=== PATIENT | female | born 1985 | race Caucasian/White ===

== ENCOUNTER 2023-12-31 06:21 | Emergency (ER) | payer MEDICAID ==
[~2023-12-31] VITALS: Ht 170.2 cm; Wt 130.0 kg
[2023-12-31 06:43] VITALS: O2SAT 98
[2023-12-31 07:24] LABS: BASOPHILS % 0.4 % (0.0-2.0); DIFFERENTIAL COMMENT 0; HEMOGLOBIN. 11.5 g/dL (12.0-16.0); LYMPHOCYTES % 24.1 % (20.0-50.0); MEAN CORPUSCULAR HEMOGLOBIN 25.5 pg (28.0-32.0); MEAN CORPUSCULAR HGB CONC 32.9 g/dL (31.0-37.0); MEAN CORPUSCULAR VOLUME 77.7 fL (81.0-99.0); MEAN PLATELET VOLUME 6.8 fl (7.4-10.4); MONOCYTES % 4.6 % (2.0-8.0); NEUTROPHILS % 67.9 % (40.0-76.0); PLATELET 406 x1000/uL (130-400); WHITE BLOOD COUNT 8.9 x1000/uL (4.5-11.0)
[2023-12-31 07:31] LABS: CHLORIDE 106 mEq/L (98-107); POTASSIUM 3.7 mEq/L (3.5-5.1); SODIUM 138 mEq/L (136-145)
[2023-12-31 07:32] LABS: CARBON DIOXIDE 26 mEq/L (21-32)
[2023-12-31 07:33] LABS: CALCIUM 9.4 mg/dL (8.7-10.4)
[2023-12-31 07:37] LABS: CREATININE 0.7 mg/dL (0.6-1.0); GLUCOSE 100 mg/dL (70-105); UREA NITROGEN BLOOD 11 mg/dL (9-23)
[2023-12-31 07:52] LABS: B-HCG QUANTITATIVE 2 mIU/mL (<3)
[2023-12-31 09:21] LABS: HCG SCREEN NEGATIVE
[2023-12-31] MEDS ORDERED: IBUP-2028 MT (10:22)
[2023-12-31 10:39] VITALS: BP 126/78; PULSE 76; RESP 16; TEMP 36.94740; O2SAT 99
[2023-12-31] MEDS ORDERED: METR-167 MT (16:10)
[2023-12-31] MEDS ORDERED: CIPR-263 MT (16:10)
== END 2023-12-31 10:41 | disposition home or self-care (01) ==
LOC: ER 06:21
DX: R10.32 Left lower quadrant pain (principal); Z98.890 Other specified postprocedural states
CPT/HCPCS: 80048; 84703; 84702; 85025; 86850; 86900; 86901; 36415; 76830; 76856; 99284; Z7610 ×2

== ENCOUNTER 2023-12-31 13:22 | Emergency (ER) | payer MEDICAID, OTHER ==
[~2023-12-31] VITALS: Ht 170.2 cm; Wt 130.0 kg
[~2023-12-31 13:22] MED LIST: IBUP-2028 MT
[2023-12-31 13:24] VITALS: O2SAT 98
[2023-12-31] MEDS: KETOROLAC 30MG/ML VIAL IM ONE (15:23)
[2023-12-31] MEDS: HYDROCODONE/ACETAMINOPHEN 5/325MG TABLET PO ONE (15:23)
[2023-12-31] MEDS ORDERED: METR-167 MT (16:10)
[2023-12-31] MEDS ORDERED: CIPR-263 MT (16:10)
[2023-12-31 16:19] VITALS: BP 132/76; PULSE 80; RESP 16; TEMP 36.55848; O2SAT 99
== END 2023-12-31 16:21 | disposition home or self-care (01) ==
LOC: ER 13:22
DX: K57.30 Diverticulosis of large intestine without perforation or abscess without bleeding (principal)
CPT/HCPCS: 99285; 74176; 96372; J1885